=== PATIENT | female | born 1960 | race Caucasian/White ===

== ENCOUNTER → 2024-08-23 09:13 | Outpatient (REF) | payer MEDICARE, OTHER, SELFPAY | LOC: HWRAD 09:13 | PROVIDERS: ATTENDING PHYSICIAN Obstetrics & Gynecology Gynecology; FAMILY PHYSICIAN Internal Medicine Geriatric Medicine | DX: M85.89 Other specified disorders of bone density and structure, multiple sites (principal) | CPT/HCPCS: 77063; 77067; 77080 ==

== ENCOUNTER → 2025-02-11 07:37 | Outpatient (REF) | payer MEDICARE, OTHER, SELFPAY | LOC: HWCARD 07:37 | PROVIDERS: ATTENDING PHYSICIAN Orthopaedic Surgery; FAMILY PHYSICIAN Internal Medicine Geriatric Medicine | DX: Z01.818 Encounter for other preprocedural examination (principal) | CPT/HCPCS: 93005 ==